=== PATIENT | male | born 1955 | race Caucasian/White ===

== ENCOUNTER 2025-01-27 06:54 | Day surgery (SDC) | payer BC, MEDICARE ==
[2025-01-27] MEDS: Lactated Ringers 1,000 ML IV SCH (07:16)
== END 2025-01-27 08:52 | disposition home or self-care (01) ==
LOC: CC.SDS 06:54
PROVIDERS: ATTEND Family Medicine
DX: Z12.11 Encounter for screening for malignant neoplasm of colon (principal); K57.30 Diverticulosis of large intestine without perforation or abscess without bleeding; Z91.013 Allergy to seafood; Z91.040 Latex allergy status
CPT/HCPCS: J7120